=== PATIENT | female | born 1990 | race Two or more races ===

== ENCOUNTER 2018-03-07 10:01 | Outpatient (CLI) | payer OTHER | END 2018-03-07 10:08 | disposition home or self-care (01) | LOC: SONOGRAMA 10:01 | DX: E04.8 Other specified nontoxic goiter (principal) ==

== ENCOUNTER 2022-07-03 14:45 | Inpatient (IN) | payer OTHER ==
[~2022-07-03] VITALS: Ht 152.4 cm; Wt 3.6 kg
[2022-07-13] MEDS ORDERED: PRENATAL + DHA1 EAC1 (08:12)
[2022-07-13] MEDS ORDERED: VITAMIN D310 MC1 (08:12)
== END 2022-07-13 12:31 | disposition home or self-care (01) | DRG 788 ==
LOC: LDR 07-10 14:52 → OB/GYN 07-11 17:15
PROVIDERS: Obstetrics & Gynecology Gynecology; ADMIT Obstetrics & Gynecology; ATTEND Obstetrics & Gynecology
PROC: BY4FZZZ Ultrasonography of Third Trimester, Single Fetus (ICD-10-PCS; 2022-07-10)
PROC: 4A1HXCZ Monitoring of Products of Conception, Cardiac Rate, External Approach (ICD-10-PCS; 2022-07-10)
PROC: 10D00Z1 Extraction of Products of Conception, Low, Open Approach (ICD-10-PCS; principal; 2022-07-11 15:00)
DX: O36.8130 Decreased fetal movements, third trimester, not applicable or unspecified (principal); O62.1 Secondary uterine inertia; Z3A.38 38 weeks gestation of pregnancy; Z37.0 Single live birth; Z20.822 Contact with and (suspected) exposure to COVID-19

== ENCOUNTER 2022-07-10 12:48 | Outpatient (CLI) | payer OTHER | END 2022-07-10 14:50 | disposition still patient (30) | LOC: NST 12:48 | PROVIDERS: ATTEND Obstetrics & Gynecology | DX: Z34.83 Encounter for supervision of other normal pregnancy, third trimester (principal) ==